=== PATIENT | female | born 1935 | race Caucasian/White ===

== ENCOUNTER 2020-12-05 08:57 | Outpatient (CLI) | payer MEDICARE, BC ==
[2020-12-05 09:39] LABS: Estimated GFR-MDRD - POC Greater than 90
== END 2020-12-05 08:58 | disposition home or self-care (01) ==
LOC: CSHCT 08:57
PROVIDERS: ATTEND Internal Medicine Cardiovascular Disease
DX: I42.9 Cardiomyopathy, unspecified (principal); I31.3 Pericardial effusion (noninflammatory); I51.7 Cardiomegaly; J47.9 Bronchiectasis, uncomplicated; J92.9 Pleural plaque without asbestos
CPT/HCPCS: 71260; 82565

== ENCOUNTER 2021-07-08 14:17 | Emergency (ER) | payer MEDICARE, BC ==
[2021-07-09 10:48] LABS: SARS-CoV-2 PCR by NAA Not Detected (NotDetected)
== END 2021-07-08 15:29 | disposition home or self-care (01) ==
LOC: CSHERS 14:17
DX: Z53.21 Procedure and treatment not carried out due to patient leaving prior to being seen by health care provider (principal)
CPT/HCPCS: U0003; U0005

== ENCOUNTER 2021-08-27 15:10 | Outpatient (CLI) | payer MEDICARE, BC | END 2021-08-27 15:11 | disposition home or self-care (01) | LOC: CSHULT 15:10 | PROVIDERS: ATTEND Family Medicine | DX: N28.1 Cyst of kidney, acquired (principal) | CPT/HCPCS: 76770 ==

== ENCOUNTER 2022-01-05 14:18 | Outpatient (CLI) | payer MEDICARE, BC | END 2022-01-05 14:19 | disposition home or self-care (01) | LOC: CSHMAMMO 14:18 | PROVIDERS: ATTEND Family Medicine | DX: Z12.31 Encounter for screening mammogram for malignant neoplasm of breast (principal) | CPT/HCPCS: 77063; 77067 ==

== ENCOUNTER 2022-02-16 09:54 | Emergency (ER) | payer MEDICARE, BC ==
[2022-02-16 10:39] LABS: Bilirubin Neg (Negative); Blood, Urine 250 (Negative); Clarity Cloudy (Clear); Glucose, Urine (Dipstick) Normal (Negative); Ketone, Urine Negative (Negative); Leukocyte 500 (Negative); Nitrite Positive (Negative); Protein, Urine (Dipstick) 100 mg/dl (Neg-Trace); Specific Gravity, Urine 1.015 (1.002-1.036); Urobilinogen Normal mg/dL (Less than 2)
[2022-02-16 10:51] LABS: RBC/HPF 21-50 HPF (0-3); WBC/HPF Greater Than 50 HPF (0-3)
[2022-02-16 10:53] LABS: Bacteria/HPF 3+ HPF (None Seen)
[2022-02-16 10:54] LABS: Mucous/LPF 1+ LPF (<2+)
[2022-02-16] MEDS ORDERED: Lidocaine 1% (PF) 30 ML VIAL ONE (10:55)
[2022-02-16] MEDS ORDERED: cefTRIAXone\\ROCEPHIN 1 GM VIAL ONE (10:55)
== END 2022-02-16 11:01 | disposition home or self-care (01) ==
LOC: CSHERS 09:54
DX: N30.00 Acute cystitis without hematuria (principal); I48.91 Unspecified atrial fibrillation; Z87.891 Personal history of nicotine dependence; Z79.01 Long term (current) use of anticoagulants; Z79.899 Other long term (current) drug therapy
CPT/HCPCS: 81003; 81015; 87077; 87086; 87186; 96372; 99284; J0696; J2001